=== PATIENT | female | born 1950 | race Two or more races ===

== ENCOUNTER 2025-09-20 19:50 | Inpatient (IN) | payer OTHER, MEDICAID ==
[~2025-09-20] VITALS: Ht 157.5 cm; Wt 66.2 kg
[2025-09-20] MEDS ORDERED: CLON0.1T PO (20:09)
[2025-09-20] MEDS ORDERED: ATOR20TA PO (20:09)
[2025-09-20] MEDS ORDERED: ACET325T53 PO (20:09)
[2025-09-20] MEDS ORDERED: ASCO500T21 PO (20:09)
[2025-09-20] MEDS ORDERED: DONE5TAB7 PO (20:09)
[2025-09-20 20:15] LABS: PLATELET COUNT (AUTO) 326 K/uL (150-450); RED BLOOD CELL COUNT(AUTO) 3.47 MIL/uL (4.0-5.2); RED CELL DISTRIBUTION WIDTH 17.1 % (11.5-15.0); WHITE BLOOD COUNT (AUTO) 11.9 K/uL (4.3-11.0)
[2025-09-20 20:24] LABS: CALCIUM, SERUM 9.2 mg/dL (8.5-10.1); CREATININE 1.0 mg/dL (0.6-1.3); SODIUM SERUM 141 mmol/L (136-145); UREA NITROGEN, BLOOD 24 mg/dL (7-18)
[2025-09-20 20:30] LABS: LACTIC ACID 0.9 mmol/L (0.4-2.0)
[2025-09-20 20:31] LABS: INR 1.11 (0.91-1.10)
[2025-09-20] MEDS ORDERED: VANCOMYCIN 1 GM /D5W 250 ML PB IV ONE (20:31)
[2025-09-20] MEDS ORDERED: PIPERACI/TAZO 3.375GM/D5W 50ML PB IV ONE (20:31)
[2025-09-20] MEDS ORDERED: NITROGLYCERIN PACKET 1 GM PACKET ONE (20:34)
[2025-09-20 20:36] LABS: ASPARTATE AMINOTRANSFERASE 12 U/L (15-37); TOTAL PROTEIN, SERUM 6.6 g/dL (6.4-8.2)
[2025-09-20] MEDS: NITROGLYCERIN PACKET 1 GM PACKET TOP ONE (20:40)
[2025-09-20] MEDS: PIPERACILLIN /TAZOBACTAM 3.375 G in IV D5W 50 ML IV ONE (20:42)
[2025-09-20 21:06] LABS: ABG BASE EXCESS 2.3 mmol/L (-2.0-3.0); ABG OXYGEN SATURATION 98.5 % (94.0-98.0); ABG PCO2 51.0 mmHg (32.0-45.0); ABG PH 7.363 (7.350-7.450); ABG PO2 155.1 mmHg (83.0-108.0); ABG TOTAL HEMOGLOBIN 10.4 G/dL (12.0-16.0); FRACTIONATED INSPIRED OXYGEN 100.0 %; SITE, ABG LEFT RADIAL
[2025-09-20] MEDS: VANCOMYCIN 1 GM in IV D5W 250 ML IV ONE (21:06)
[2025-09-20] MEDS ORDERED: FUROSEMIDE 20 MG/2 ML VIAL ONE (21:09)
[2025-09-20 21:12] LABS: APPEARANCE,URINE TURBID (CLEAR); BLOOD, URINE TRACE-INTA Ery/uL (NEGATIVE); LEUKOCYTE ESTERASE ,URINE 3+ (NEGATIVE); NITRITE, URINE NEGATIVE (NEGATIVE); UGLUCOSE TRACE mg/dL (NEGATIVE)
[2025-09-20] MEDS: FUROSEMIDE 20 MG/2 ML VIAL IV ONE (21:12)
[2025-09-20] MEDS ORDERED: GUANFACINE PO (21:29)
[2025-09-20] MEDS ORDERED: HYDR-4077 PO (21:29)
[2025-09-20] MEDS ORDERED: LOSA100T3 PO (21:29)
[2025-09-20] MEDS ORDERED: PANT40TA49 PO (21:29)
[2025-09-20] MEDS ORDERED: NIFE60TA2 PO (21:29)
[2025-09-20] MEDS ORDERED: FERR220S2 PO (21:29)
[2025-09-20] MEDS ORDERED: ESCI5TAB PO (21:29)
[2025-09-20] MEDS ORDERED: MEMA10TA PO (21:29)
[2025-09-20] MEDS ORDERED: CHOL100062 PO (21:29)
[2025-09-20] MEDS ORDERED: CRAN250C PO (21:29)
[2025-09-20] MEDS ORDERED: DOCU100T2 PO (21:29)
[2025-09-20] MEDS ORDERED: APIX2.5T PO (21:29)
[2025-09-20] MEDS ORDERED: INSU100V7 SQ (21:29)
[2025-09-20] MEDS ORDERED: FUROSEMIDE 40 MG/4 ML VIAL ONE (21:36)
[2025-09-20] MEDS: FUROSEMIDE 40 MG/4 ML VIAL IV SCH (21:42)
[2025-09-20 21:48] LABS: ADD URINE CULTURE YES
[2025-09-20 21:49] LABS: SQUAMOUS EPITHELIAL CELL,UR Few /HPF (None Seen); YEAST,URINE Few /HPF (None Seen)
[2025-09-20] MEDS ORDERED: ZOLPIDEM TARTRATE 5 MG TABLET PO PRN (22:00)
[2025-09-20] MEDS ORDERED: MAG HYDROX/AL HYDROX/SIMETH 30 ML UDC PO PRN (22:00)
[2025-09-20] MEDS ORDERED: MAGNESIUM HYDROXIDE 30 ML UDC PO PRN (22:00)
[2025-09-20] MEDS ORDERED: ACETAMINOPHEN 325 MG TABLET PO PRN (22:00)
[2025-09-20] MEDS ORDERED: NIFEDIPINE XL 60 MG TAB.ER.24 PO SCH (22:00)
[2025-09-20] MEDS ORDERED: ONDANSETRON HCL/PF 4 MG/2 ML VIAL IVP PRN (22:00)
[2025-09-20] MEDS ORDERED: Z GUARD REMEDY 4 OZ OINT TP PRN (22:00)
[2025-09-20] MEDS ORDERED: LOSARTAN POTASSIUM 50 MG TABLET PO SCH (22:50)
[2025-09-21] VITALS (7 sets, daily range): BP systolic 163–185; BP diastolic 53–80; TEMP 97.8–98.9; O2SAT 98–100
[2025-09-21] MEDS ORDERED: ZOSYN IVPB 3.375 G in IV D5W 50ml IV SCH
[2025-09-21] MEDS ORDERED: PIPERACILLIN /TAZOBACTAM 3.375 G in IV D5W 50 ML IV SCH
[2025-09-21] MEDS ORDERED: PIPERACI/TAZO 3.375GM/D5W 50ML PB IV ONE (02:25)
[2025-09-21] MEDS: ZOSYN IVPB 3.375 G in IV D5W 50ml IV SCH (02:31)
[2025-09-21] MEDS: CLONIDINE HCL 0.1 MG TABLET PO PRN (06:52)
[2025-09-21 07:28] LABS: PLATELET COUNT (AUTO) 274 K/uL (150-450); RED BLOOD CELL COUNT(AUTO) 3.08 MIL/uL (4.0-5.2); RED CELL DISTRIBUTION WIDTH 16.4 % (11.5-15.0); WHITE BLOOD COUNT (AUTO) 9.0 K/uL (4.3-11.0)
[2025-09-21 07:48] LABS: CALCIUM, SERUM 9.2 mg/dL (8.5-10.1); CREATININE 1.1 mg/dL (0.6-1.3); PHOSPHORUS 4.0 mg/dL (2.5-4.9); SODIUM SERUM 141.0 mmol/L (136-145); UREA NITROGEN, BLOOD 22.0 mg/dL (7-18)
[2025-09-21] MEDS ORDERED: INSULIN REGULAR, HUMAN 100 UNIT/ML 3 ML VIAL SQ PRN (08:30)
[2025-09-21] MEDS ORDERED: DEXTROSE 50%-WATER 50 ML DISP.SYRIN IV PRN (08:30)
[2025-09-21] MEDS: DOCUSATE SODIUM 100 MG CAPSULE PO SCH (08:48)
[2025-09-21] MEDS: PANTOPRAZOLE 40 MG TABLET.DR PO SCH (08:48)
[2025-09-21] MEDS: CHOLECALCIFEROL 1,000 UNIT TABLET (VIT D3) PO SCH (08:48)
[2025-09-21] MEDS: FERROUS SULFATE (325 MG) 325 MG/TAB TABLET PO SCH (08:48)
[2025-09-21] MEDS: METOPROLOL SUCCINATE 50 MG TAB.SR.24H PO SCH (08:49)
[2025-09-21] MEDS: NIFEDIPINE XL 60 MG TAB.ER.24 PO SCH ×2 (08:51→16:55)
[2025-09-21] MEDS: LOSARTAN POTASSIUM 50 MG TABLET PO SCH (08:51)
[2025-09-21] MEDS: APIXABAN 2.5 MG TABLET PO SCH (08:53)
[2025-09-21] MEDS ORDERED: FERROUS SULFATE - FOR SA ONLY 330 MG/7.5 ML UDC PO SCH (09:00)
[2025-09-21] MEDS: PIPERACILLIN /TAZOBACTAM 3.375 G in IV D5W 100 ML IV SCH (11:13)
[2025-09-21] MEDS ORDERED: MELA3TAB41 PO (11:15)
[2025-09-21] MEDS ORDERED: GUAN1TAB PO (11:15)
[2025-09-21] MEDS ORDERED: MULT-24 PO (11:15)
[2025-09-21] MEDS ORDERED: POLY17PO4 PO (11:15)
[2025-09-21] MEDS ORDERED: BISA10SU11 RC (11:15)
[2025-09-21] MEDS ORDERED: NA P133E RC (11:15)
[2025-09-21] MEDS ORDERED: MAGN400O6 PO (11:15)
[2025-09-21] MEDS ORDERED: ZINC PO (11:15)
[2025-09-21] MEDS ORDERED: ACET325T53 PO (11:15)
[2025-09-21] MEDS ORDERED: AMIN30LI66 PO (11:15)
[2025-09-21] MEDS ORDERED: INSU100I4 SQ (11:15)
[2025-09-21] MEDS: BLOOD SUGAR DIAGNOSTIC 1 EACH STRIP VI SCH (12:32)
[2025-09-21] MEDS: *INSULIN REGULAR(HUMULIN R)HUM 100 UNIT/ML VIAL SQ PRN (12:35)
[2025-09-21] MEDS: THERAHONEY GEL 1.5 OZ TUBE TP SCH (12:36)
[2025-09-21] MEDS: ARGININE/GLUTAMINE/CALCIUM BMB 1 EACH POWD.PACK PO SCH (14:00)
[2025-09-21] MEDS ORDERED: NIFEDIPINE XL 60 MG TAB.ER.24 PO SCH (17:00)
[2025-09-21] MEDS: DONEPEZIL 5 MG TABLET PO SCH (18:10)
[2025-09-21] MEDS: INSULIN GLARGINE, 100 UNIT/ML CARTRIDGE SQ SCH (18:11)
[2025-09-21] MEDS ORDERED: ESCITALOPRAM OXALATE (10 MG) 10 MG TABLET PO SCH (22:00)
[2025-09-21] MEDS ORDERED: MEMANTINE HCL 5 MG TABLET PO SCH (22:00)
[2025-09-21] MEDS ORDERED: GUANFACINE HCL 1 MG TABLET PO SCH (22:00)
[2025-09-21] MEDS ORDERED: ATORVASTATIN 10 MG TABLET PO SCH (22:00)
[2025-09-22] MEDS ORDERED: FUROSEMIDE 40 MG/4 ML VIAL IV SCH (09:00)
== END 2025-09-21 22:09 | disposition short-term general hospital (02) | DRG 177 ==
LOC: ER 19:52 → TELE 21:44 → TELE1 22:39 → TELE-TD 22:44 → TELE1 09-21 09:31
PROVIDERS: ADMIT Internal Medicine; ATTEND Internal Medicine
DX: J69.0 Pneumonitis due to inhalation of food and vomit (principal); J96.21 Acute and chronic respiratory failure with hypoxia; L89.153 Pressure ulcer of sacral region, stage 3; J96.22 Acute and chronic respiratory failure with hypercapnia; Z66 Do not resuscitate; F03.918 Unspecified dementia, unspecified severity, with other behavioral disturbance; D64.9 Anemia, unspecified; E11.9 Type 2 diabetes mellitus without complications; J90 Pleural effusion, not elsewhere classified; N39.0 Urinary tract infection, site not specified; Z79.01 Long term (current) use of anticoagulants; F09 Unspecified mental disorder due to known physiological condition; F32.9 Major depressive disorder, single episode, unspecified; F20.9 Schizophrenia, unspecified; I11.0 Hypertensive heart disease with heart failure; F03.93 Unspecified dementia, unspecified severity, with mood disturbance; E78.5 Hyperlipidemia, unspecified; Z20.822 Contact with and (suspected) exposure to COVID-19; R26.81 Unsteadiness on feet; F41.9 Anxiety disorder, unspecified; I48.0 Paroxysmal atrial fibrillation; Z79.899 Other long term (current) drug therapy; Z86.73 Personal history of transient ischemic attack (TIA), and cerebral infarction without residual deficits; Z87.01 Personal history of pneumonia (recurrent); Z79.4 Long term (current) use of insulin; D17.9 Benign lipomatous neoplasm, unspecified; I50.9 Heart failure, unspecified; R91.8 Other nonspecific abnormal finding of lung field
CPT/HCPCS: 36415; 36600; 71045-TC; 71250-TC; 80048-TC; 80076-TC; 81001; 82803-TC; 82962-TC; 83605-TC; 83735-TC; 83880; 84100-TC; 84484-TC; 85025-TC; 85730-TC; 87040-TC; 87086-TC; 93307-TC; 97110-TC; 97116-TC; 97530-TC; A4223; G0378; J1815; J1938; J2543; J3373; J7050; J7060